=== PATIENT | male | born 1960 | race American Indian/Alaskan Native ===

== ENCOUNTER 2016-11-27 06:20 | Day surgery (SDC) | payer MEDICAID ==
[~2016-11-27 06:20] MED LIST: ANCEF/STERILE WATER 2 GM/20 ML 2 GM/20 ML SYRINGE IV SCH; HEPARIN SUB-Q NR; PEPCID PO NR; ceFAZolin 2 GM in NACL 0.9% 100 ML IV NR
[2016-11-27] MEDS ORDERED: NACL BACTERIOSTATIC INFILTRATI ONE (06:38)
[2016-11-27] MEDS ORDERED: NACL 0.9% 1000 ML 1,000 ML IV SCH (07:00)
[2016-11-27] MEDS ORDERED: VERSED IV NR (07:00)
[2016-11-27] MEDS ORDERED: DILAUDID IV PRN (07:19)
[2016-11-27] MEDS ORDERED: ZOFRAN IV PRN (07:19)
[2016-11-27] MEDS ORDERED: NORCO 5/325 PO PRN (07:19)
--- NOTE | 2016-11-27 07:19 | Anesthesia Consultation ---
Anesthesia Consult and Med Hx Date of service: 11/27/16 - Airway Anesthetic Teeth Evaluation: Dentures Mental/Hyoid Distance: Adequate Mallampati Class: Class II Intubation Access Assessment: Probably Good - Pulmonary Exam CTA: Yes - Cardiac Exam Cardiac Exam: RRR - Pre-Operative Health Status ASA Pre-Surgery Classification: ASA2 Proposed Anesthetic Plan: General - Pulmonary Hx Smoking: Yes (CIGARETTES 1 PPD X 45 YRS) Hx Sleep Apnea: No - Central Nervous System Hx Psychiatric Problems: No - Gastrointestinal Hx Gastroesophageal Reflux Disease: No - Other Systems Hx Substance Use: Yes (MARIJUANA DAILY) Hx Cancer: No
--- NOTE | 2016-11-27 07:19 | Anesthesia Day of Surgery ---
Anesthesia Day of Surgery - Day of Surgery Patient Examined: Yes Patient H&P Reviewed: Yes Patient is NPO: Yes
[2016-11-27] MEDS ORDERED: XYLOCAINE MPF 2% ONE ×2 (07:30→09:25)
[2016-11-27] MEDS ORDERED: QUELICIN ONE (07:30)
[2016-11-27] MEDS ORDERED: DIPRIVAN 10 MG/ML IV ONE (07:31)
[2016-11-27] MEDS ORDERED: SUBLIMAZE ONE ×2 (07:31)
[2016-11-27] MEDS ORDERED: ROBINUL ONE ×2 (08:13→09:00)
[2016-11-27] MEDS ORDERED: ZEMURON IV ONE (08:30)
[2016-11-27] MEDS ORDERED: NACL 0.9% 1000 ML 1,000 ML ONE (08:38)
[2016-11-27] MEDS ORDERED: NACL 0.9% IR ONE (08:51)
[2016-11-27] MEDS ORDERED: MARCAINE-EPI 0.25%-1:200,000 INFILTRATI ONE (08:52)
[2016-11-27] MEDS ORDERED: BLOXIVERZ ONE (09:00)
[2016-11-27] MEDS ORDERED: TORADOL ONE (09:06)
--- NOTE | 2016-11-27 09:29 | Short Stay Summary ---
Short Stay Documentation Date of service: 11/27/16 - Allergies and Medications Current Medications: Allergies No Known Allergies Allergy (Unverified 11/22/16 17:17) Home Medications Medication Instructions Recorded Confirmed Last Taken Type No Known Home Medications [No 11/22/16 11/22/16 Unknown History Reported Home Medications] Active Medications Famotidine (Pepcid) 20 mg PO PREOP NR Stop: 11/27/16 23:59 Last Admin: 11/27/16 07:05 Dose: 20 mg Heparin Sodium (Porcine) (Heparin) 5,000 unit SUB-Q PREOP NR Stop: 11/27/16 23:59 Last Admin: 11/27/16 07:07 Dose: 5,000 unit Hydromorphone HCl (Dilaudid) 0.5 mg IV Q10MIN PRN PRN Reason: Pain , Severe (7-10) Stop: 11/30/16 07:20 Sodium Chloride (Nacl 0.9% 1000 Ml) 1,000 mls @ 100 mls/hr IV DIRECT RADHA Last Admin: 11/27/16 06:53 Dose: 100 mls/hr Cefazolin Sodium (Ancef/Sterile Water 2 Gm/20 Ml) 2 gm in 20 mls @ 80 mls/hr IV PREOP RADHA Stop: 11/27/16 23:59 Midazolam HCl (Versed) 2 mg IV PREOP NR Stop: 11/27/16 23:59 Last Admin: 11/27/16 07:26 Dose: 2 mg - Brief post op/procedure progress note Date of procedure: 11/27/16 Pre-op diagnosis: right inguinal hernia Post-op diagnosis: same Procedure: laparoscopic right inguinal hernia repair with mesh Anesthesia: ROSA, local Surgeon: QUANG LIMA Estimated blood loss: none Pathology: none Condition: stable - Disposition Condition at discharge: Good Disposition: DISCHARGED TO HOME OR SELFCARE Short Stay Discharge Plan Activity: no restrictions Diet: regular Wound: remove dressing (11/29/16 and then may shower) Special Instructions: other (ice pack to the right groin for 1-2 days to help reduce pain and swelling) Follow up with: QUANG LIMA MD [Staff Physician] - 7 Days Prescriptions: oxyCODONE /ACETAMINOPHEN [Percocet 5/325] 1 - 2 tab PO Q4HR PRN #40 tab PRN Reason: Pain
[2016-11-27] MEDS ORDERED: DEMEROL ONE ×2 (09:47→11:00)
[2016-11-27] MEDS ORDERED: DEMEROL IV PRN (09:57)
--- NOTE | 2016-11-27 10:14 | Operative Report ---
PREOPERATIVE DIAGNOSIS: Right inguinal hernia. POSTOPERATIVE DIAGNOSIS: Right inguinal hernia. PROCEDURE: Laparoscopic right inguinal hernia repair with mesh. SURGEON: Michele Huynh MD ANESTHESIA: General and local. ESTIMATED BLOOD LOSS: Minimal. SPECIMEN: None. IMPLANTS: Mesh. DRAINS: None. COMPLICATIONS: None. INDICATIONS: This is a 56-year-old gentleman who has a symptomatic right inguinal hernia presents now for repair. OPERATIVE COURSE: The patient was brought to the operating room, identified, and placed in the supine position. General anesthesia was achieved. His abdomen was prepped and draped in usual manner. Prior to all incisions, the area was infiltrated with 0.25% Marcaine. A supraumbilical 10 mm incision was made using a Veress needle technique. The abdomen was insufflated to 15 mmHg pressure. A 10 mm trocar was inserted using a 30 degree 10 mm telescope. The other trocars were placed under direct vision, which included left and right lateral 5 mm ports. He did have some minor filmy adhesions from the open appendectomy he had in the right side, which were taken down with sharp dissection without any injury of the bowels or other structures. We then took down the peritoneal lining with sharp dissection after identifying a small indirect right inguinal hernia. There was no hernia on the other side. We proceeded to take peritoneal lining completely down off the pelvic structures with care being taken not to injure the epigastric vessels, inguinal vessels, vas deferens, gonadal vessels, or nerves. Once the peritoneal lining completely down, we introduced a 3 inch x 5 inch piece of Bard and soft mesh and tacked it once to García's ligament and twice across the anterior abdominal wall to totally cover up the defect and then reperitonealized the abdomen with the capture tacker. Once this was accomplished, we removed the ports under direct vision. No signs of bleeding from the port sites, then evacuated the CO2. I closed the fascia in the 10 mm port site with an 0 Vicryl and then closed all the skin incisions with a 4-0 Vicryl suture, Steri-Strips, and bandage. JOB# [id number] ALF/DIOR
[2016-11-27 11:17] VITALS: BP 130/76
== END 2016-11-27 11:30 | disposition home or self-care (01) ==
LOC: OR 06:20
PROVIDERS: ATTEND Surgery
DX: K40.90 Unilateral inguinal hernia, without obstruction or gangrene, not specified as recurrent (principal); K21.9 Gastro-esophageal reflux disease without esophagitis; N40.0 Benign prostatic hyperplasia without lower urinary tract symptoms; F12.90 Cannabis use, unspecified, uncomplicated; F17.210 Nicotine dependence, cigarettes, uncomplicated; Z79.899 Other long term (current) drug therapy; Z98.890 Other specified postprocedural states
CPT/HCPCS: 49650; C1781; J0330; J0690; J1644; J1885; J2175; J2250; J2704; J2710; J3010; J7030

== ENCOUNTER 2017-03-26 11:38 | Emergency (ER) | payer MEDICAID ==
[2017-03-26 11:48] VITALS: BP 128/83
--- NOTE | 2017-03-26 12:27 | Emergency Department Report ---
Entered by KENNY MARRERO, acting as scribe for SB DYE NP. Chief Complaint: Nausea/Vomiting/Diarrhea Stated Complaint: NAUSE/DIARRHEA Time Seen by Provider: 03/26/17 12:16 - HPI History of Present Illness: Pt is non-toxic, non ill appearing, in no acute distress with c/o N/V/D and weakness for 2 days. Patient is not actively vomiting in triage. Patient states he lost 9 lbs within the last 2 weeks. Reports chills denies SOB, abd pain, and chest pain PSHx appendectomy PMHx GERD - ROS Review of Systems: Reports N/V/D denies abdominal pain. Reports weakness Denies chest pain and SOB Denies fever but reports chills - Exam Vital Signs: Vital Signs 03/26/17 11:44 Temperature 97.5 F L Pulse Rate 66 Respiratory 17 Rate Blood Pressure 128/83 O2 Sat by Pulse 100 Oximetry Physical Exam: Constitutional: Non toxic appearing, NAD. Abdomen: Abdomen is non-distended, soft with no tenderness to palpation in all quadrants. No abdominal bruit. No epigastric pain. Negative [place] Tenderness. Negative [place] sign. MSE screening note: Focused history and physical exam performed. Due to findings the following was ordered: CBC, CMP, UA, amylase stat, and lipase stat will be ordered for patient. ED Disposition for MSE Condition: Stable This documentation as recorded by the scribe,KENYN MARRERO,accurately reflects the service I personally performed and the decisions made by MARNIE gautam MARTIN, MITCHEL.
[2017-03-26 13:16] LABS: Basophils % (Auto) 1.1 % (0.0-1.8); Eosinophils % (Auto) 1.7 % (0.0-4.3); Hemoglobin 15.7 gm/dl (11.8-15.2); Mean Corpuscular HGB Conc 34 % (32-34); Mean Corpuscular Hemoglobin 30 pg (28-32); Mean Corpuscular Volume 86 fl (84-94); Platelet Count 255 K/mm3 (140-440); Red Blood Count 5.34 M/mm3 (3.65-5.03); Red Cell Distribution Width 15.3 % (13.2-15.2); White Blood Count 4.2 K/mm3 (4.5-11.0)
[2017-03-26 13:28] LABS: Amylase 31 units/L (27-131); Anion Gap 17 mmol/L; BUN/Creatinine Ratio 18.88; Blood Urea Nitrogen 17 mg/dL (9-20); Calcium 8.9 mg/dL (8.4-10.2); Carbon Dioxide 26 mmol/L (22-30); Chloride 102.6 mmol/L (98-107); Glucose 92 mg/dL (75-100); Lipase 19 units/L (13-60); Sodium 142 mmol/L (137-145)
[2017-03-26 13:29] LABS: Bilirubin,Urine NEG (Negative); Blood,Urine NEG (Negative); Ketones,Urine NEG (Negative); Leukocyte Esterase,Urine NEG (Negative); Mucus,Urine 3+ /HPF; Nitrite,Urine NEG (Negative); Protein,Urine <15 mg/dL mg/dL (Negative)
== END 2017-03-26 20:20 | disposition left against medical advice (07) ==
LOC: ED 11:38
DX: R11.2 Nausea with vomiting, unspecified (principal); R19.7 Diarrhea, unspecified; Z53.21 Procedure and treatment not carried out due to patient leaving prior to being seen by health care provider
CPT/HCPCS: 36415; 80048; 81001; 82150; 83690; 85025